=== PATIENT | female | born 1960 | race Caucasian/White ===

== ENCOUNTER 2018-05-10 08:14 | Outpatient (RCR) | payer OTHER, SELFPAY | END 2018-06-09 14:57 | LOC: SP 08:14 | PROVIDERS: Visit Provider Physician Assistant Medical | DX: I63.9 Cerebral infarction, unspecified (principal) | CPT/HCPCS: 96125 ==

== ENCOUNTER 2018-05-21 12:05 | Outpatient (RCR) | payer OTHER, SELFPAY ==
--- NOTE | 2018-05-21 16:51 | OT.OP.EVAL ---
Visit Care Team Role Provider Type Attending Provider Specialty: Address: Phone: Fax: Email: Occupational Therapy Initial Evaluation OT Outpatient Adult Evaluation Start: 05/21/18 16:23 Freq: Status: Active Protocol: Document 05/21/18 16:23 AMS (Rec: 05/21/18 16:51 AMS [email or web address]) General Information Visit Start Time 12:40 Visit Stop Time 13:30 Total Visit Minutes 50 Visit Number 03/28 Plan of Care Dates 05/21/18 Insurance Information [employer] PPO; Pre-Authorization Required; Pre-Auth required > 6 visits Treatment Setting Outpatient Care Note Type Initial Evaluation Referring Physician Jeana Stack MD Reason for Referral CVA of right basal ganglia Identification Confirmed Yes Identification Confirmed By Patient - Photo ID History of Therapy Denied inpatient/home health OT. Recently evaluated and d/c by outpatient [employer] PROFESSOR. Current Therapy/Therapies Yes; (+) outpt PT. PT addressing balance/LE strength . Social History Patient reported that she resides in [facility] w/ her boyfriend. 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 Completed test in 20.1 sec w/ R hand and in 22.8 sec w/ L hand. B UE AROM WNL. Treatment HEP provided. Written and visual instructions provided for PNF UE diagonals and for kinesthetic UE small circles w / written cueing for use of visual mirror feedback and/or metronome to assist w/ motor planning. Written cues provided for eye-hand coordination. Reviewed in-hand manipulation motor planning w / and without use of objects, including slides. Reviewed all recommendations in treatment session and answered all questions. Assessment/Plan Patient Response Good Rehabilitation Potential Good Impairments Identified Balance Coordination/Dexterity Functional Activities Motor Function Recreational Activities Meaningful Activities Motor Planning Eye-Hand Coordination Treatment Assessment Patient is a 58 year-old, right hand dominant female referred to outpatient OT secondary to CVA of right basal ganglia. PMH: Medical History Outpatient form was completed by patient and placed in paper chart; significant for arthritis, joint replacement(s), and stroke/TIA. 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 Evaluation findings: Right hand dominant female w/ left upper extremity affected by CVA; no complaints of pain in left upper extremity; mod I w/ BADLS and IADLS per patient report w/ increased concentration; L UE AROM WNL; c/o change in sensation of distal R UE of the 1st, 2nd, and 3rd digits; mild kinesthetic impairment L UE with movements away from base of support; mild proprioceptive impairment L UE ; decreased speed and efficiency w/ execution of motor plans L UE; mildly impaired bimanual coordination ; and decreased eye-hand coordination L UE. Per patient request, patient was only seen for initial evaluation and treatment given insurance limitations and likely upcoming need for ' right total hip surgery' and desire to preserve remaining visits. Individualized HEP was provided to patient to address findings from initial evaluation w/ focus on motor planning/awareness of UE in space/bimanual coordination to support success w/ return to work and participation in meaningful activities. All questions were answered re: HEP. Home Exercise Program HEP provided. Reviewed with Patient Home Exercise Program Patient Understanding Good Comment Eval and treat only per pt request Therapeutic Contents Active Range of Motion Client Education Cognitive Skills Development Functional Activities Home Exercise Program Joint Protection Manual Therapy Education Neurodevelopment Treatment Neuromuscular Re-Education Self-Care Stretching/Flexibility Activities Therapeutic Activities Therapeutic Exercises Modalities Sensory Re-education Patient Instruction Home Exercise Program Questions/Concerns Patient Recommendations Discharge to Home Exercise Program
== END 2018-06-09 14:51 ==
LOC: OT 12:05
DX: I63.9 Cerebral infarction, unspecified (principal)
CPT/HCPCS: 97112; 97165